=== PATIENT | male | born 1985 | race Caucasian/White ===

== ENCOUNTER 2016-10-09 08:24 | Day surgery (SDC) | payer OTHER ==
[~2016-10-09 08:24] MED LIST: Z.0.NO CURRENT MEDS
[2016-10-09] MEDS ORDERED: INSULIN HUMAN REGULAR 1,000 UNITS/10 ML VIAL SQ PRN (08:45)
[2016-10-09] MEDS ORDERED: METOPROLOL TARTRATE 25 MG TAB PO PRN (08:45)
[2016-10-09] MEDS ORDERED: LACTATED RINGER'S 1000 ML IV SCH (08:45)
[2016-10-09] MEDS ORDERED: MISCELLANEOUS NURSING INFORMATION XX PRN (11:15)
--- NOTE | 2016-10-09 15:20 | EKG ---
Date Performed: 10/09/2016 Time Performed: 08:45:08 PTAGE: 31 years EKG: Sinus bradycardia Possible anterior infarct - age undetermined Abnormal ECG NO PREVIOUS TRACING DOCTOR: Jose Mitchell Interpretating Date/Time 10/09/2016 15:18:29
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
--- NOTE | 2016-10-10 09:04 | ETE ---
Study Study Date:10/09/2016 STUDY CONCLUSIONS SUMMARY - Left ventricle: The cavity size was normal. Wall thickness was normal. Systolic function was normal. The estimated ejection fraction was in the range of 60% to 65%. Wall motion was normal; there were no regional wall motion abnormalities. - Aortic valve: Functionally bicuspid with fusion of left and right coronary cusps. Thickening. Valve mobility was mildly restricted. No evidence of vegetation. Transvalvular velocity was minimally increased. There was very mild stenosis. Mild regurgitation. - Aortic root: The aortic root was dilated. - Ascending aorta: The ascending aorta was severely dilated. - Mitral valve: No evidence of vegetation. Mild regurgitation. - Left atrium: No evidence of thrombus in the atrial cavity or appendage. - Tricuspid valve: No evidence of vegetation. Mild regurgitation. - Pulmonic valve: No evidence of vegetation. If LV function is below 40, please consider prescribing an ACEI or ARB or document rationale for non-use. PROCEDURE DATA Consent: The risks, benefits, and alternatives to the procedure were explained to the patient and informed consent was obtained. Procedure: Initial setup. The patient was brought to the laboratory in the fasting state. Intravenous access was obtained. Surface ECG leads and pulse oximetric signals were monitored. Sedation. Deep sedation was administered by anesthesiology. Transesophageal echocardiography. Topical anesthesia was obtained using viscous lidocaine. A transesophageal probe was inserted by the attending smooth plater. Image quality was good. Study completion: All IVs inserted during the procedure were removed. The patient tolerated the procedure well. There were no complications. Transesophageal echocardiography. 2D, complete spectral Doppler, and color Doppler. CARDIAC ANATOMY LEFT VENTRICLE: The cavity size was normal. Wall thickness was normal. Systolic function was normal. The estimated ejection fraction was in the range of 60% to 65%. Wall motion was normal; there were no regional wall motion abnormalities. AORTIC VALVE: Functionally bicuspid with fusion of left and right coronary cusps. Thickening. Cusp separation was normal. Valve mobility was mildly restricted. No evidence of vegetation. Doppler: Transvalvular velocity was minimally increased. There was very mild stenosis. Mild regurgitation. Aorta: - There was no atheroma. There was no evidence for dissection. Aortic root: The aortic root was dilated. Ascending aorta: The ascending aorta was severely dilated. Aortic arch: The aortic arch was normal in size. Descending aorta: The descending aorta was normal in size. MITRAL VALVE: Structurally normal valve. Leaflet separation was normal. No evidence of vegetation. Doppler: Mild regurgitation. LEFT ATRIUM: The atrium was normal in size. No evidence of thrombus in the atrial cavity or appendage. The appendage was morphologically a left appendage, multilobulated, and of normal size. Emptying velocity was normal. RIGHT VENTRICLE: The cavity size was normal. Wall thickness was normal. Systolic function was normal. PULMONIC VALVE: Structurally normal valve. No evidence of vegetation. TRICUSPID VALVE: Structurally normal valve. Leaflet separation was normal. No evidence of vegetation. Doppler: Mild regurgitation. PULMONARY ARTERY: The main pulmonary artery was normal-sized. RIGHT ATRIUM: The atrium was normal in size. PERICARDIUM: There was no pericardial effusion. DOPPLER MEASUREMENTS ADULT NORMAL Main pulmonary artery Pressure, S 15 mm Hg =30 Aortic valve Peak velocity, S 92.8 cm/s Tricuspid valve Regurgitant peak velocity 115 cm/s Peak RV-RA gradient, S 5 mm Hg Maximal regurgitant velocity 115 cm/s Systemic veins Estimated CVP 10 mm Hg Right ventricle RV pressure, S 15 mm Hg <30 LEGEND: Mean values are shown as u=mean value. Asterisk (*) krishnamurthy values outside specified normal range. Prepared and signed by Arvin Murphy [id number]
== END 2016-10-09 12:00 | disposition home or self-care (01) ==
LOC: HDOC 08:24 → HDIC 08:26 → HDOC 12:00
PROVIDERS: ATTEND Internal Medicine
DX: I71.2 Thoracic aortic aneurysm, without rupture (principal); R00.1 Bradycardia, unspecified; R94.31 Abnormal electrocardiogram [ECG] [EKG]; Z87.891 Personal history of nicotine dependence; I07.1 Rheumatic tricuspid insufficiency
CPT/HCPCS: 93005; 93312; 93320; 93325

== ENCOUNTER 2016-12-20 06:23 | Day surgery (SDC) | payer OTHER ==
[~2016-12-20] VITALS: Ht 182.9 cm; Wt 83.3 kg
[2016-12-20] MEDS ORDERED: NS 1000P @30 MLS/HR (KVO) IV SCH (07:00)
[2016-12-20 07:20] VITALS: BP 138/81; PULSE 44; RESP 18; TEMP 97.6; O2SAT 100
[2016-12-20] MEDS ORDERED: FLUT50SP EACH NARE (07:26)
[2016-12-20] MEDS ORDERED: OMEP20TA PO (07:26)
[2016-12-20] MEDS ORDERED: VERAPAMIL HCL 5 MG/2 ML VIAL ONE (08:20)
[2016-12-20] MEDS ORDERED: MIDAZOLAM HCL 2 MG/2 ML VIAL ONE ×2 (08:20→08:42)
[2016-12-20] MEDS ORDERED: HEPARIN-NS/PF INJ 500 ML ONE (08:20)
[2016-12-20] MEDS ORDERED: NITROGLYCERIN INJ 5 ML ONE (08:21)
[2016-12-20] MEDS ORDERED: HEPARIN SODIUM - IV 10,000 UNITS/10 ML VIAL ONE (08:21)
[2016-12-20] MEDS ORDERED: oxyCODONE/ACETAMINOPHEN 5 MG/325 MG TAB PO PRN ×2 (09:00)
[2016-12-20] MEDS ORDERED: ONDANSETRON HCL 4 MG/2 ML VIAL IVP PRN (09:00)
[2016-12-20] MEDS ORDERED: MISC INFORMATION XX ONE (09:00)
[2016-12-20] MEDS ORDERED: BACITRACIN OINT 0.9 GM PKT TOP ONE (09:00)
--- NOTE | 2016-12-20 09:03 | CATHPROC ---
Stretchr HIS Report Study Information Study Number Scheduled Start Study Start [id number] 12/20/2016 Dec 20 2016 8:15AM Referring Institution Admit Source Facility Department 1 Other [facility] - [facility] Department Supervisor Physician and Clinical Staff Initial Arvin Pinedo Journeyman WiremanKiki Parisi,RN Journeyman WiremanSharif Shah,[place] Recorder Karl Knox,RT(R) Scrub Kenroy Hernandez,RT(R) TECH2 Procedures Performed Procedure Location (Site) Vessel Name Coronary Angiograms LCA Left Coronary Coronary Angiograms RCA Right Coronary L Heart Cath Equipment Time Hoe Worker Description Size Mfg Part Number Used/Scraped TRANSDUCER, TRUWAVE 08:23 BROOKE BLACKWELL * [id number] Used W/STOCKCOCK [id number] *[id number] 08:23 [employer] PACK, CCL CUSTOM * Used *[id number] 08:23 [employer] SUPPORT, ARTERIAL ADULT [id number] Used 08:23 [employer] PACER PEN, SKIN DUAL W/ RULER * [id number] Used BAND, RADIAL COMPRESSION TR [id number] 08:54 EndoSphere 24CM Used SHORT 24 *[id number] SHEATH, FR6 RADIAL PRELUDE 08:23 [employer] FR 6 [id number] Used EASE 11CM [id number] 08:23 [employer] WIRE, EXCHANGE 260CM [id number] 260CM Used *[id number] 08:23 [employer] OMNIPAQUE, 350 MG, 100ML 100ML [id number] Used [id number] 08:23 [employer] BLANKET,WARM AIR CCL * Used *[id number] History: Allergies Allergy Reaction No Known Allergies History: Risk Factors Family History of Hypertension Dyslipidemia Previous OR Previous Heart Failure Premature CAD No No No No No Prior Valve Prior PCI Prior CABG Surgery No No No Cerebrovascular Peripheral Artery Chronic Lung On Dialysis Diabetes Disease Disease Disease No No No No No History: Symptoms/Diagnosis Selection Items Chest pain History: Stress Tests Stress or Imaging Studies Performed No History: Other Current Smoker Method Quit Packs a Day Years Used Pack Years No Cigarettes 4 Years Ago 1 3 3 Labs Hgb (g/dl) Hct (%) RBC (MIL/MM3) WBC (l/cumm) Platelets (thousands) 12.00-18.00 37.00-55.00 4.80-6.20 4.80-10.80 140.00-450.00 14.5 41.5 4.4 6.9 205 Glucose (mg/dl) BUN (mg/dl) Creatinine (mg/dl) BUN:Creatinine (1:x) 60.00-110.00 8.00-20.00 0.10-9.00 10.00-20.00 67 15 0.9 16.7 Na (meq/l) K (meq/l) Cl (meq/l) CO2 (mmol/L) Ca (mg/dl) 138.00-146.00 3.80-5.10 101.00-111.00 23.00-30.00 9.00-10.50 142 4 100 21 9.4 PT (sec) INR (PTT:PT) 9.40-11.40 0.50-2.00 10.6 1 CPK-MB (ng/ML) 0.00-7.00 Not Drawn Medication Medication Total Dose (Bolus/Oral) Medication Total Dosage/Unit FENTANYL 100 mcg HEPARIN 2000 units NTG (IC) 400 mcg OXYGEN 2 l/min VERSED 4 mg Medications (Bolus/Oral) Medication Time Given Dosage/Unit Administered By Reason VERSED 12/20/2016 8:37:46 AM 2 mg Diana Blackwella 2 mg VERSED given in lab by Kiki Blackwell RN in Left Antecubital via Peripheral IV. FENTANYL 12/20/2016 8:38:45 AM 50 mcg Kiki Blackwell 50 mcg FENTANYL given in lab by Kiki Blackwell RN in Left Antecubital via Peripheral IV. VERSED 12/20/2016 8:43:46 AM 2 mg Diana Blackwella 2 mg VERSED given in lab by Kiki Blackwell RN in Left Antecubital via Peripheral IV. FENTANYL 12/20/2016 8:44:29 AM 50 mcg Kiki Blackwell 50 mcg FENTANYL given in lab by Kiki Blackwell RN in Left Antecubital via Peripheral IV. NTG (IC) 12/20/2016 8:45:44 AM 200 mcg Arvin Murphy 200 mcg NTG (IC) given in lab by Arvin Murphy in Right Radial via Intra-coronary. HEPARIN 12/20/2016 8:46:06 AM 2000 units Kiki Blackwell 2000 units HEPARIN given in lab by Kiki Blackwell RN in Left Antecubital via Peripheral IV. OXYGEN 12/20/2016 8:47:04 AM 2 l/min Kiki Blackwell 2 l/min OXYGEN given in lab by Kiki Blackwell, [place] via Nasal. NTG (IC) 12/20/2016 8:49:05 AM 200 mcg Kiki Blackwell 200 mcg NTG (IC) given in lab by Kiki Blackwell, [place] via Intra-arterial. Medication (Drip) Medication Time Given Dosage/Unit Concentration/Unit Diluent (ml) Solution IV Solutions 12/20/2016 8:20:28 AM 0 mL (IV) 500 NaCl .9 IV Solutions given in lab by Sharif Blake, RN in Left Antecubital via Peripheral IV. Pump/Drip Flow = 20 ml/hr using NaCl .9. Initial Case Assessment Cardiovascular HR Rhythm NIBP Chest Pain 62 Sinus 149/86 0 Edema Present Skin color Skin None Normal Warm Dry Circulatory - Right Pulses Dorsalis Pedis Femoral Radial 2 2 2 Scale (0,1,2,3,4,d) Circulatory - Left Pulses Dorsalis Pedis Femoral Radial 2 2 Scale (0,1,2,3,4,d) Neurological State Oriented to time-place- Alert Moves all extremities person Respiration - General Respiration Rate SpO2 (%) O2 (lpm) (B/min) 8 100 0 Final Case Assessment Cardiovascular HR Rhythm NIBP Chest Pain 59 Sinus 109/54 0 Edema Present Skin color Skin None Normal Warm Dry Circulatory - Right Pulses Dorsalis Pedis Femoral Radial 2 2 2 Scale (0,1,2,3,4,d) Circulatory - Left Pulses Dorsalis Pedis Femoral Radial 2 2 Scale (0,1,2,3,4,d) Neurological State Oriented to time-place- Alert Moves all extremities person Respiration - General Respiration Rate SpO2 (%) O2 (lpm) (B/min) 16 97 2 Chronological Log Time Study Chronological Log 8:13:28 Patient arrived via Bed. 8:15:34 Patient Name, D.O.B, / Armband Verified By R.N. 8:15:34 Consent signed by the physician and the patient and verified by the [facility] Department Supervisor staff. 8:15:35 Pre-op and post- op instructions given; patient acknowledges understanding of instructions. Verbal Stimulation=~VERBAL~ Physical Stimulation=~PHYSICAL~ Airway=~AIRWAY~ Respiration=~RESPIR ATION~ 8:15:36 TOTAL=~TOTAL~. (0=absent, 1=limited, 2=present) 8:19:41 Presedation assessment performed by [facility] Department Supervisor RN. 8:19:43 Allens test performed on the right radial and ulnar artery. Vitals capture started with the following parameters, Patient=Adult, Interval=5 min, Initial Pr rbzcvm=436 mmHg, 8:19:47 Deflation Rate=5 mmHg 8:19:50 Patient has been NPO for More than 6Hrs. 8:19:51 Skin Breakdown- none per patient. 8:20:07 Patient Warmer Placed on the Table. 8:20:09 Tk Prominences Protected 8:20:12 A # 20 IV was noted in the Antecubital (left). Grade = 0 IV Solutions given in lab by Sharif Blake, RN in Left Antecubital via Peripheral IV. Pump/Drip Flow = 20 ml/hr using 8:20:28 NaCl .9. 8:20:32 HR=60 bpm, DKZF=464/86 mmhg, StW3=872.0 %, Resp=13 B/min, Pain=0, Sunil=10, Morales=2 8:21:12 History and physical on the chart or being dictated. Assessment: Initial Case, HR=62 BPM, Rhythm=Sinus, WXQY=720/86 mmhg, Chest Pain=0, Edema=None, Color=Normal, Skin = Warm, Dry Right Pulses: Julio César Ped=2, Femoral=2, Radial=2 8:21:14 Left Pulses: Julio César Ped=2, Femoral=2 Neurological: State=Alert, Ox3, NUNEZ Respiration: Resp=8 B/min, MsK5=144 %, O2=0 lpm 8:25:56 HR=47 bpm, WLEY=181/95 mmhg, Resp=23 B/min, Pain=0, Sunil=10, Morales=2 8:28:12 Right Radial and groin(s) prepped with 2% chlorhexidine, and with a 3 min. waiting time. 8:30:59 HR=60 bpm, RVHA=182/80 mmhg, RuU1=765.0 %, Resp=13 B/min, Pain=0, Sunil=10, Morales=2 8:32:10 paged 8:35:27 HR=52 bpm, PZKJ=301/72 mmhg, SpO2=98.0 %, Resp=20 B/min, Pain=0, Sunil=10, Morales=2 8:35:31 Pressure channel 1 zeroed. 8:37:08 MD arrived. 8:37:46 2 mg VERSED given in lab by Kiki Blackwell RN in Left Antecubital via Peripheral IV. 8:38:45 50 mcg FENTANYL given in lab by Kiki Blackwell RN in Left Antecubital via Peripheral IV. 8:40:30 HR=49 bpm, KPUR=949/62 mmhg, SpO2=95.0 %, Resp=14 B/min, Pain=0, Sunil=10, Morales=2 8:41:24 Reference ECG taken 8:43:46 2 mg VERSED given in lab by Kiki Blackwell RN in Left Antecubital via Peripheral IV. Time Out. Correct patient, correct procedure,correct physician, power injector loaded with contr ast with surgical team 8:43:50 present. Time Out Concurred by , individual staff in procedure 8:44:15 Case Start 8:44:27 Access site was right Radial Artery. 8:44:29 50 mcg FENTANYL given in lab by Kiki Blackwell RN in Left Antecubital via Peripheral IV. A SHEATH, FR6 RADIAL PRELUDE EASE 11CM FR 6 was advanced into the Radial (right) using the Cora st 8:44:54 technique. 8:45:24 In the Radial (right) the SHEATH, FR6 RADIAL PRELUDE EASE 11CM FR [address] by Arvin Murphy. 8:45:27 HR=50 bpm, ZNZR=995/58 mmhg, SpO2=90.0 %, Resp=24 B/min, Pain=0, Sunil=10, Morales=2 8:45:44 200 mcg NTG (IC) given in lab by Arvin Murphy in Right Radial via Intra-coronary. 8:46:06 2000 units HEPARIN given in lab by Kiki Blackwell RN in Left Antecubital via Peripheral IV. A JR 5.0 INFINITI CATHETER FR 6 was advanced over a wire. OMNIPAQUE, 350 MG, 100ML 100ML was use d for 8:46:18 injections. 8:47:04 2 l/min OXYGEN given in lab by Kiki Blackwell RN via Nasal. 8:47:22 The RCA was injected and visualized at various angles. OMNIPAQUE, 350 MG, 100ML 100ML used. 8:48:02 Catheter was removed 8:49:05 200 mcg NTG (IC) given in lab by Kiki Blackwell RN via Intra-arterial. Recorded Pressure: Ao, HR=47, Condition=Condition 1 8:50:23 (Aorta) Ao 98/61/77 8:50:28 HR=48 bpm, BVEO=612/53 mmhg, SpO2=99.0 %, Resp=11 B/min, Pain=0, Sunil=10, Morales=2 8:50:31 The LCA was injected and visualized at various angles. OMNIPAQUE, 350 MG, 100ML 100ML used. 8:51:27 Catheter was removed 8:51:42 Case End 8:52:06 No case complications noted. 8:52:09 Cine recording checked. 8:53:02 Bedside Report will be given. 8:53:08 A Left Heart Cath was performed. Radial Compression Device Used. 15 mLs of air placed in BAND, RADIAL COMPRESSION TR SHORT 24 2 4CM. Affected 8:53:15 hand 97 % O2 saturation. Assessment: Final Case, HR=59 BPM, Rhythm=Sinus, ZHGS=103/54 mmhg, Chest Pain=0, Edema=None, Color=Normal, Skin = Warm, Dry Right Pulses: Julio César Ped=2, Femoral=2, Radial=2 8:54:51 Left Pulses: Julio César Ped=2, Femoral=2 Neurological: State=Alert, Ox3, NUNEZ Respiration: Resp=16 B/min, SpO2=97 %, O2=2 lpm 8:55:29 HR=56 bpm, OHQA=095/54 mmhg, SpO2=96.0 %, Resp=19 B/min, Pain=0, Sunil=10, Morales=2 8:59:19 Vitals capture stopped. 8:59:54 [facility] Study - Contrast Media Used In Study Contrast Total Opened (mL) Total Used (mL) Total Wasted (mL) Omnipaque 150 40 110 End Study - Maximum Contrast Load Max Contrast Load (mL) 462.9 End Study - Radiation Exposure Fluoro Time (minutes) 1.8 End Study - Patient Disposition Complications Transferred To Interventional Outcome No Outpatient Bed No attempt made
[2016-12-20] MEDS ORDERED: IOHEXOL 350 MG/ML 100 ML BTL (for Cath Lab) OTHER ONE (09:33)
--- NOTE | 2016-12-20 10:26 | MA ---
cc: PAULETTE CLARK MD DATE 12/20/2016 PROCEDURE PERFORMED 1. Fluoroscopy with interpretation. 2. Coronary angiography. METHOD The risks, benefits and alternatives discussed with the patient. The patient understood and consented to the procedure. PROCEDURE The patient brought into the catheterization lab, placed on the catheterization table. The right wrist was prepped and draped in a sterile fashion. The right wrist was anesthetized with 2% lidocaine. The right radial artery was cannulated and a 6-Urdu, 7 cm sheath was placed without difficulty. 200 mcg of intra-arterial nitroglycerin and 2000 units of intravenous heparin was administered. CORONARY ANGIOGRAPHY 1. Left main coronary is angiographically normal. 2. left anterior descending coronary is A large caliber size vessel extending down to a large diagonal branch. The apical LAD itself is smaller caliber size and all of it is angiographically normal. 3. Left circumflex gives rise to an obtuse marginal branch angiographically normal. 4. The right coronary is a dominant vessel giving rise to a posterior descending branch angiographically normal. CONCLUSION Angiographically normal coronary arteries. PLAN The patient will be scheduled for surgery with Dr. Morton. MD PHILLY Brizuela/BRANDI /9:54 AM /10:12 AM
--- NOTE | 2016-12-20 13:01 | RADRPT ---
EXAM DATE/TIME: 12/20/2016 12:24 [facility] COMPARISON: No previous studies available for comparison. INDICATIONS : Pre Op cardiac surgery. MEDICAL HISTORY : Chest pain. Aortic stenosis. SURGICAL HISTORY : Cardiac cath, right wrist. ENCOUNTER: Initial ACUITY: 1 day PAIN SCORE: 1/10 LOCATION: Bilateral legs. TECHNIQUE: Venous ultrasound of the left and right leg was performed from the inguinal ligament to the proximal calf. Real-time, color Doppler and spectral tracing, compression and augmentation techniques were us ed. FINDINGS: RIGHT LEG: There is normal compressibility of the deep venous system from the inguinal region to the proximal ca lf. No echogenic clot is seen in the lumen of the common femoral, femoral, popliteal, and posterior tibial veins. There is a normal response of the venous system to proximal and distal augmentation an d respiration. LEFT LEG: There is normal compressibility of the deep venous system from the inguinal region to the proximal ca lf. No echogenic clot is seen in the lumen of the common femoral, femoral, popliteal, and posterior tibial veins. There is a normal response of the venous system to proximal and distal augmentation an d respiration. CONCLUSION: 1. No evidence of deep venous thrombosis. Zaid Dominguez MD on December 20, 2016 at 13:00 Board Certified Radiologist. This report was verified electronically.
--- NOTE | 2016-12-20 13:03 | RADRPT ---
EXAM DATE/TIME: 12/20/2016 12:31 [facility] COMPARISON: No previous studies available for comparison. INDICATIONS : PreOp cardiac surgery. MEDICAL HISTORY : Chest pain. Aortic stenosis. SURGICAL HISTORY : Cardiac cath, right wrist. ENCOUNTER: Initial ACUITY: 1 day PAIN SCORE: 1/10 LOCATION: Bilateral legs. GREATER SAPHENOUS VEIN THIGH: PROXIMAL: Right 3 mm Left 4 mm MID: Right 4 mm Left 4 mm DISTAL: Right 4 mm Left 4 mm CALF: PROXIMAL: Right 4 mm Left 3 mm MID: Right 2 mm Left 3 mm DISTAL: Right 5 mm Left 3 mm FINDINGS: The venous system of the lower extremities are patent by color Doppler imaging. Measurements of the leg veins (in mm) are listed above. CONCLUSION: 1. Venous mapping as above Zaid Dominguez MD on December 20, 2016 at 13:02 Board Certified Radiologist. This report was verified electronically.
[2016-12-20 13:39] LABS: HEMOGLOBIN A1a 0.8 %; HEMOGLOBIN A1b 0.7 %; HEMOGLOBIN Ao 85.5 %; HEMOGLOBIN F 1.3 %; HEMOGLOBIN P3 3.4 %
--- NOTE | 2016-12-20 13:55 | RADRPT ---
EXAM DATE/TIME: 12/20/2016 13:30 [facility] COMPARISON: No previous studies available for comparison. INDICATIONS : Evaluate for pneumothorax, pneumonia or communicable disease. Preop chest for cardiac surgery and rep air of thoracic aortic anuerysm on 01/08/17 MEDICAL HISTORY : thoracic aortic anuerysm SURGICAL HISTORY : None. ENCOUNTER: Initial ACUITY: 1 day PAIN SCORE: 0/10 LOCATION: Bilateral chest FINDINGS: PA and lateral views of the chest demonstrate the lungs to be symmetrically aerated without evidence of mass, infiltrate or effusion. The cardiomediastinal contours are unremarkable. Osseous structure s are intact. CONCLUSION: Normal examination. Arvin Blackwell MD on December 20, 2016 at 13:54 Board Certified Radiologist. This report was verified electronically.
[2016-12-20 14:21] LABS: BLOOD, URINE NEG (NEG); GLUCOSE,URINE NEG (NEG); KETONE, URINE NEG (NEG); NITRITE,URINE NEG (NEG); PH, URINE 6.5 (5.0-8.5); URINE COLOR YELLOW (YELLW/STRAW)
[2016-12-20 14:23] LABS: COMMENT (UR) CULT NOT INDICATED; CULTURE IF INDICATED CULT NOT INDICATED
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
--- NOTE | 2016-12-25 10:30 | RSPPFT ---
DATE OF PROCEDURE: 12/20/16 COMMENTS: Spirometry demonstrates an FEV1 of 3.7 at 78% of predicted, FVC of 5.5 at 95%, FEF 25-75 is 50%. Post-bronchodilator study was not conducted. Flow volume loop are unavailable. IMPRESSION: 1. Mild obstructive airways disease.
== END 2016-12-20 14:10 | disposition home or self-care (01) ==
LOC: HCAT 06:23 → HDIC 06:24 → HCAT 14:10
PROVIDERS: ATTEND Internal Medicine
DX: I71.2 Thoracic aortic aneurysm, without rupture (principal); Q23.1 Congenital insufficiency of aortic valve; K21.9 Gastro-esophageal reflux disease without esophagitis; Z01.818 Encounter for other preprocedural examination; J98.8 Other specified respiratory disorders
CPT/HCPCS: 71020; 81001; 83036; 86850; 86900; 86901; 87641; 93454; 93970; 93998; 94010; C1769; C1893; J1644; J2250; J3010; Q9967

== ENCOUNTER 2017-01-02 14:32 | Inpatient (IN) | payer OTHER ==
[~2017-01-02] VITALS: Ht 182.9 cm; Wt 82.0 kg
[2017-01-08] VITALS (13 sets, daily range): BP systolic 93–128; BP diastolic 54–80; PULSE 56–74; RESP 10–25; TEMP 96.7–98.1; O2SAT 95–99
[2017-01-08] MEDS ORDERED: HEPARIN SODIUM - SQ 10,000 UNITS/ML VIAL SQ ONE (05:00)
[2017-01-08] MEDS ORDERED: PROTAMINE SULFATE 250 MG/25 ML VIAL IV ONE (05:00)
[2017-01-08] MEDS ORDERED: PHENYLEPHRINE HCL 10 MG/ML VIAL IV ONE (05:00)
[2017-01-08] MEDS ORDERED: ceFAZolin INJ 1,000 MG VIAL IV ONE ×2 (05:00→12:06)
[2017-01-08] MEDS ORDERED: ARTIFICIAL TEARS OPTH OINT 3.5 APPLIC/3.5 GM TUBO ONE (05:00)
[2017-01-08] MEDS ORDERED: CALCIUM CHLORIDE 10% SOLN 1 GRAM/10 ML SYR IV ONE (05:00)
[2017-01-08] MEDS ORDERED: MAGNESIUM SULFATE 1000 MG/2 ML VIAL (PED) IV ONE (05:00)
[2017-01-08] MEDS ORDERED: GLYCOPYRROLATE 0.2 MG/ML VIAL IV ONE (05:00)
[2017-01-08] MEDS ORDERED: DEXMEDETOMIDINE INJ 50 ML IV ONE (05:00)
[2017-01-08] MEDS ORDERED: AMINOCAPROIC ACID INJ 250 MG/ML 20 ML VIAL IV ONE (05:00)
[2017-01-08] MEDS ORDERED: VECURONIUM BROMIDE 10 MG VIAL IV ONE ×2 (05:00→08:08)
[2017-01-08] MEDS ORDERED: SODIUM CHLORIDE 0.9% FLUSH 10 ML FLUSH IV FLUSH PRN ×2 (06:00→12:45)
[2017-01-08] MEDS ORDERED: FLUT1SPR5 EACH NARE (06:09)
[2017-01-08] MEDS ORDERED: METOPROLOL TARTRATE 25 MG TAB PO SCH (06:15)
[2017-01-08] MEDS ORDERED: INSULIN REGULAR 100 UNITS in NS 100 ML IV SCH (06:15)
[2017-01-08] MEDS ORDERED: ceFAZolin 2 GM PREMIX 50 ML IV SCH (06:15)
[2017-01-08] MEDS ORDERED: LACTATED RINGER'S 1000 ML IV PRN (06:15)
[2017-01-08] MEDS ORDERED: CHLORHEXIDINE GLUCONATE 4% SOLN 120 ML BTL TOPICAL SCH (06:15)
[2017-01-08] MEDS ORDERED: HEPARIN SODIUM - SQ 10,000 UNITS/ML VIAL ONE (06:35)
[2017-01-08] MEDS ORDERED: ceFAZolin 2 GM PREMIX 50 ML ONE (06:35)
[2017-01-08] MEDS ORDERED: VANCOMYCIN HCL 1000 MG VIAL ONE (06:35)
[2017-01-08] MEDS ORDERED: POTASSIUM CHLORIDE 20 MEQ/10 ML VIAL ONE (06:50)
[2017-01-08] MEDS ORDERED: CUSTODIOL HTK IRR SOLN 1,000 ML ONE (06:50)
[2017-01-08] MEDS ORDERED: SODIUM BICARBONATE 8.4% INJ 50 ML ONE (06:51)
[2017-01-08] MEDS ORDERED: MANNITOL INJ 50 ML ONE (06:54)
[2017-01-08] MEDS ORDERED: ALBUMIN HUMAN 25% 12.5 GM/50 ML BAGP IV ONE (06:55)
[2017-01-08] MEDS ORDERED: HEPARIN SODIUM - IV 10,000 UNITS/10 ML VIAL ONE (06:55)
[2017-01-08] MEDS ORDERED: NEOSTIGMINE METHYLSULFATE 10 MG/10 ML VIAL IV PUSH ONE (08:07)
[2017-01-08] MEDS ORDERED: LACTATED RINGER'S 1000 ML INJ 2,000 ML IV ONE (08:08)
[2017-01-08] MEDS ORDERED: SODIUM CHLORIDE 0.9% INJ 100 ML IV ONE (08:09)
[2017-01-08] MEDS ORDERED: SODIUM CHLOR 0.9% 250 ML INJ 500 ML IV ONE (08:09)
[2017-01-08] MEDS ORDERED: SODIUM CHLORID 0.9% 500 ML INJ 500 ML IV ONE (08:09)
[2017-01-08] MEDS ORDERED: NORMOSOL R INJ 2,000 ML IV ONE (08:10)
[2017-01-08] MEDS ORDERED: NITROGLYCERIN-DEXTROSE INJ 250 ML IV SCH (12:45)
[2017-01-08] MEDS ORDERED: POTASSIUM CHLORIDE 20 MEQ CONTROLLED RELEASE TAB PO PRN ×2 (12:45)
[2017-01-08] MEDS ORDERED: POTASSIUM CHLOR 20 MEQ PREMIX 100 ML IV PRN ×3 (12:45)
[2017-01-08] MEDS ORDERED: hydrALAZINE HCL 20 MG/ML VIAL IV PRN (12:45)
[2017-01-08] MEDS ORDERED: DEXTROSE 50% IN WATER 50 ML VIAL(D50) IV PUSH PRN (12:45)
[2017-01-08] MEDS ORDERED: CALCIUM CHLORIDE 10% 1 GRAM/10 ML VIAL IV PRN (12:45)
[2017-01-08] MEDS ORDERED: MEPERIDINE HCL 25 MG/ML VIAL IV PRN (12:45)
[2017-01-08] MEDS ORDERED: ACETAMINOPHEN 650 MG SUPP RECTAL PRN (12:45)
[2017-01-08] MEDS ORDERED: MAGNESIUM SULFATE INJ 2 GM in SODIUM CHLORIDE 0.9% INJ 100 ML IV PRN ×4 (12:45)
[2017-01-08] MEDS ORDERED: METOPROLOL TARTRATE 5 MG/5 ML VIAL IV PUSH PRN (12:45)
[2017-01-08] MEDS ORDERED: DEXMEDETOMIDINE INJ 200 MCG in SODIUM CHLORIDE 0.9% INJ 50 ML IV SCH (12:45)
[2017-01-08] MEDS ORDERED: LACTATED RINGER'S 1000 ML INJ 500 ML IV PRN (12:45)
[2017-01-08] MEDS ORDERED: RESP: ALBUTEROL 2.5 MG/IPRATROPIUM 0.5 MG NEB (PRN) NEB (12:45)
[2017-01-08] MEDS ORDERED: RESP: RACEPINEPHRINE 2.25% 0.5 ML NEB NEB PRN (12:45)
[2017-01-08] MEDS ORDERED: Post-op Orders (for Pharmacy) MISC OTHER ONE (12:45)
[2017-01-08] MEDS ORDERED: DOPamine INJ PREMIX 500 ML IV SCH (12:45)
[2017-01-08] MEDS ORDERED: ACETAMINOPHEN 325 MG TAB PO PRN (12:45)
[2017-01-08] MEDS ORDERED: CLEVIDIPINE INJ 50 ML IV SCH (12:45)
[2017-01-08] MEDS ORDERED: MORPHINE SULFATE 4 MG/ML INJ IV PRN (12:45)
[2017-01-08] MEDS ORDERED: ALBUMIN HUMAN 5% 12.5 GM/250 ML BOTTLE IV PRN (12:45)
[2017-01-08] MEDS ORDERED: DOBUTamine PREMIX DRIP 250 ML IV SCH (13:30)
[2017-01-08] MEDS ORDERED: fentaNYL CITRATE 1000 MCG/20 ML VIAL ONE (13:46)
[2017-01-08] MEDS ORDERED: MIDAZOLAM HCL 5 MG/5 ML VIAL ONE (13:46)
[2017-01-08] MEDS: CALCIUM CHLORIDE INJ 1 GM in SODIUM CHLORIDE 0.9% INJ 100 ML IV PRN ×2 (13:55→18:44)
--- NOTE | 2017-01-08 13:56 | RADRPT ---
EXAM DATE/TIME: 01/08/2017 13:21 [facility] COMPARISON: CHEST PA & LAT, December 20, 2016, 13:30. INDICATIONS : S/p cabg. MEDICAL HISTORY : aortic stenosis, thoracic aortic aneurysm SURGICAL HISTORY : None. ENCOUNTER: Initial ACUITY: 1 day PAIN SCORE: Non-responsive. LOCATION: Bilateral chest FINDINGS: The heart is normal in size. The patient is post median sternotomy. The lungs demonstrate minimal bas ilar atelectasis on the left. There is no pneumothorax. The ET tube, mediastinal drains, right jugular central line and nasogastric tube are all in good posi tion. CONCLUSION: 1. Stable postoperative chest. Matt Martinez MD on January 08, 2017 at 13:53 Board Certified Radiologist. This report was verified electronically.
[2017-01-08] MEDS ORDERED: INSULIN REGULAR (IV INFUSION) 100 UNITS in SODIUM CHLORIDE 0.9% INJ 99 ML IV SCH (14:00)
[2017-01-08] MEDS ORDERED: PHENYLEPHRINE INJ 40 MG in DEXTROSE 5% IN WATE 500 ML INJ 496 ML IV SCH ×2 (14:00)
[2017-01-08] MEDS ORDERED: EPINEPHrine (1:1000) INJ 4 MG in DEXTROSE 5% IN WATER INJ 246 ML IV SCH ×2 (14:00)
[2017-01-08] MEDS: ONDANSETRON HCL 4 MG/2 ML VIAL IV PUSH PRN ×2 (14:23→20:12)
[2017-01-08] MEDS: ACETAMINOPHEN 1000 MG/100 ML VIAL IV SCH ×2 (14:25→20:12)
--- NOTE | 2017-01-08 14:35 | PD.OP ---
cc: Stormy Morton MD; Arvin Murphy MD Operative Report Date of Surgery: Jan 08, 2017 Preoperative Diagnosis: Postoperative Diagnosis: Procedure: 1. Aortic valve replacement with a 25 mm Medtronic Mosaic Cinch II Tissue valve 2. Ascending Aortic Aneurysm Replacement with a 34 mm Hemashield Graft . Surgeon: Stormy Morton Supervisor [employer](s): Syl Womack Operation and Findings: PREOPERATIVE DIAGNOSES 1. Ascending Aortic Aneurysm - 5.7 cm 2. Bicuspid Aortic Valve POSTOPERATIVE DIAGNOSES Same SURGICAL PROCEDURE 1. Aortic valve replacement with a 25 mm Medtronic Mosaic Cinch II Tissue valve 2. Ascending Aortic Aneurysm Replacement with a 34 mm Hemashield Graft [employer] Jennifer Womack CSFEvaristo ANESTHESIA General endotracheal. CAN INSPECTOR Elijah Leyva CRNA, Jennifer Samayoa MD PREPARATION ChloraPrep. NEEDLE, SPONGE AND INSTRUMENT COUNT Correct. DRAINS Two 32-Tristanian mediastinal tubes. COMPLICATIONS None. INDICATIONS The patient is an 31-year-old gentleman with incidental findings of a 5.7 cm ascending aortic aneurysm and bicuspid aortic valve, presenting for surgical correction of the above pathologies. DESCRIPTION OF PROCEDURE The patient was brought to the operating room and placed supine on the OR table. Following the induction of adequate general endotracheal anesthesia and placement of appropriate monitoring devices, the patient was prepped and draped in the standard sterile fashion. Median sternotomy was performed, the pericardium was divided in the midline and the cradle created. The patient was systemically heparinized and anticoagulation monitored by serial ACT measurements. Then 2 pursestring sutures of 2-0 Ethibond were placed on the aorta proximal to the takeoff of the innominate artery, another was placed in the right atrial appendage. At this point, aortic and 2-stage venous cannulae were introduced and attached to the arterial and venous components of the bypass circuit respectively. Antegrade cardioplegia cannula and a left ventricular vent, through the right superior pulmonary vein, were also placed. The patient was placed on cardiopulmonary bypass and core cooling initiated to a temperature of 32 degrees centigrade. The crossclamp was applied and 1.8 L of cardioplegia solution (Jail HTK) given in an antegrade fashion in addition to topical cooling with slushed saline. Upon achieving adequate diastolic arrest of the heart. the aorta was transected transversly at the site of the ascending aneurysm. The aorta was examined and it was noted that the aneurysmal dilatation began just distal to the coronary ostia and the aortic caliber normalized just proximal to the arch. Plans were made to proceed with AVR and supracoronary aneurysm resection and replacement of the ascending aorta. The aortic valve was then excised. 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 Horizontal mattress sutures of interrupted 2-0 Ethibond were placed on the aortic annulus with pledgets on the ventricular side. After adequate sizing, a 25 mm Mosaic Cinch II valve was brought in the surgical field and the sutures passed through the skirt and the valve was situated. This appeared to be a good fit. Next the aneurysmal aorta was excised upto a relatively normal diameter just proximal to the arch. After adequate sizing, a 34 mm Hemashield graft was sewn to the distal aorta using a running 4-0 Prolene. The anastomosis was reinforced with interrupted horizontal mattress sutures of pledgeted 4-0 Prolene. Proximally, the aorta was excised to just above the coronary ostia and the graft sewn similarly to the umkumiut aorta with a running 4-0 Prolene with subsequent reinforcement using interrupted pledgeted 4-0 Prolene mattress sutures. Bioglue was applied to both suture lines. Root vent was placed into the graft. Gradual rewarming was initiated. The cross clamp was removed and upon achieving normothermic cardiac activity, transesophageal echocardiography revealed a well-situated aortic prosthesis with no evidence of perivalvular leak and no aortic stenosis or aortic regurgitation. Protamine was administered. Decannulation was performed and all sites were inspected for hemostasis. At this point the closure was undertaken. The pericardium was reapproximated in the midline. 2 chest tubes placed, and the sternum was reapproximated using stainless steel sternal wires. The musculo- fascial layer was then closed in 3 layers. The patient tolerated the procedure well and was transferred to open heart recovery in critical but stable condition. Stormy Morton MD Jan 08, 2017 14:35
[2017-01-08] MEDS: RESP: ALBUTEROL 2.5 MG/IPRATROPIUM 0.5 MG NEB (SCH) NEB ×2 (16:18→21:36)
[2017-01-08] MEDS: ceFAZolin 2 GM PREMIX 50 ML IV SCH (16:28)
[2017-01-08] MEDS: KETOROLAC TROMETHAMINE 30 MG/ML (IVP) VIAL IV PUSH PRN (16:28)
[2017-01-08] MEDS: SODIUM CHLORIDE 0.9% FLUSH 10 ML FLUSH IV FLUSH SCH (20:19)
[2017-01-08] MEDS: AMIODARONE 200 MG TAB PO SCH (21:00)
[2017-01-09] VITALS (11 sets, daily range): BP systolic 103–129; BP diastolic 54–82; PULSE 70–93; RESP 14–18; TEMP 98.3–98.9; O2SAT 94–96
[2017-01-09] MEDS: ceFAZolin 2 GM PREMIX 50 ML IV SCH ×3 (00:22→16:22)
[2017-01-09] MEDS: KETOROLAC TROMETHAMINE 30 MG/ML (IVP) VIAL IV PUSH PRN ×2 (00:53→09:44)
[2017-01-09] MEDS: ONDANSETRON HCL 4 MG/2 ML VIAL IV PUSH PRN ×3 (02:19→16:56)
[2017-01-09] MEDS: ACETAMINOPHEN 1000 MG/100 ML VIAL IV SCH ×2 (02:19→08:14)
[2017-01-09] MEDS: RESP: ALBUTEROL 2.5 MG/IPRATROPIUM 0.5 MG NEB (SCH) NEB ×2 (04:00→13:06)
--- NOTE | 2017-01-09 04:46 | RADRPT ---
EXAM DATE/TIME: 01/09/2017 03:53 [facility] COMPARISON: CHEST SINGLE AP, January 08, 2017, 13:21. INDICATIONS : Status post CABG. MEDICAL HISTORY : Aortic stenosis, Thoracic aortic aneurysm SURGICAL HISTORY : CABG. ENCOUNTER: Subsequent ACUITY: 2 days PAIN SCORE: 7/10 LOCATION: Bilateral chest FINDINGS: A single view of the chest demonstrates the lungs to be symmetrically aerated without evidence of mas s, infiltrate or effusion. The cardiomediastinal contours are unremarkable. Osseous structures are intact. Clips and wires suggest DVT. 2 medi[address] dra[address] are in place. Right IJ central line in good position CONCLUSION: Normal examination with clips and drains suspicious for median sternotomy. Arvin Blackwell MD on January 09, 2017 at 4:43 Board Certified Radiologist. This report was verified electronically.
[2017-01-09 05:05] LABS: HEMATOCRIT 35.8 % (39.0-51.0); MEAN CELL VOLUME 90.6 FL (80.0-100.0); MEAN CORPUSCULAR HEMOGLOBIN 31.5 PG (27.0-34.0); MEAN CORPUSCULAR HGB CONC 34.8 % (32.0-36.0); PLATELET COUNT 104 TH/MM3 (150-450); RED BLOOD COUNT 3.95 MIL/MM3 (4.50-5.90); RED CELL DISTRIBUTION WIDTH 12.8 % (11.6-17.2); REVIEW FLAG FINAL; WHITE BLOOD COUNT 13.9 TH/MM3 (4.0-11.0)
[2017-01-09 05:33] LABS: MAGNESIUM 1.6 MG/DL (1.5-2.5); POTASSIUM 4.5 MEQ/L (3.5-5.1)
[2017-01-09] MEDS: PANTOPRAZOLE SOD 40 MG DELAYED RELEASE TAB PO SCH (06:00)
[2017-01-09] MEDS ORDERED: SOD PHOSPHATE/SOD BIPHOSPHATE (ADULT) ENEMA 133ML RECTAL PRN (09:00)
[2017-01-09] MEDS ORDERED: GLUCAGON 1 MG/ML VIAL OTHER PRN (09:00)
[2017-01-09] MEDS ORDERED: DEXTROSE 50% IN WATER 50 ML VIAL(D50) IV PRN (09:00)
[2017-01-09] MEDS ORDERED: BISACODYL 10 MG SUPP RECTAL PRN (09:00)
[2017-01-09] MEDS ORDERED: CLOPIDOGREL 75 MG TAB PO SCH (09:00)
[2017-01-09] MEDS: MAGNESIUM HYDROXIDE SUSP 30 ML CUP PO SCH (09:43)
[2017-01-09] MEDS: ASPIRIN 81 MG CHEW TAB PO SCH (09:44)
[2017-01-09] MEDS: SODIUM CHLORIDE 0.9% FLUSH 10 ML FLUSH IV FLUSH SCH ×2 (09:44→21:13)
[2017-01-09] MEDS: AMIODARONE 200 MG TAB PO SCH ×2 (09:44→21:13)
[2017-01-09] MEDS: METOCLOPRAMIDE HCL 10 MG/2 ML VIAL IV SCH ×3 (09:49→21:13)
[2017-01-09] MEDS: DOCUSATE SODIUM 100 MG CAP PO SCH ×2 (09:49→21:13)
[2017-01-09] MEDS: MULTIVITAMINS/MINERALS THERAPEUTIC TAB PO SCH (09:49)
[2017-01-09] MEDS: oxyCODONE/ACETAMINOPHEN 5 MG/325 MG TAB PO PRN ×2 (11:36→18:27)
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
--- NOTE | 2017-01-09 12:56 | HHI.FF ---
Face to Face Verification Diagnosis: (1) Bicuspid aortic valve (2) Ascending aortic aneurysm (3) aortic valve recurg (4) S/P AVR (aortic valve replacement) Home Health Nursing Order: Signs/symptoms of disease process Wound care and dressing changes Nursing assessment with vital signs Instructions: PREVENA Single Use Negative Wound Therapy System Caregiver Instruction Sheet 1. A Prevena dressing system was applied to the chest incision during surgery , to promote wound healing. It works via a suction device (negative pressure wound therapy) to remove low to moderate levels of exudate (drainage) and infectious materials. We recommend that the device stay in place for up to seven days, from day of surgery. 2. Day of Surgery___/01/19 Day of Removal ____/ 3. The dressing should only be removed by a health skin care therapist. Please arrange removal of device to coincide with Home Health visit and or with Nursing staff at Rehab 4. If skin reddening or irritation of skin occurs, or excessive drainage, please notify the Cardiovascular Surgeons office at [phone]. 5. Light showering is permissible; however the pump should be disconnected and placed in safe location, where it will not get wet. The dressing should not be exposed to direct spray or submerged in water. No bath tub / shower only. Ensure the end of the tubing attached to the dressing is facing down so that water does not enter the top of the tube. 6. To remove Prevena dressing: press purple button to turn off device / remove the suction. Then disconnect the tubing from the pump. The fixation strips should be stretched away from the skin and the dressing lifted at one corner and peeled back until it has been fully removed. 7. After removal, it is ok to shower daily using liquid dial soap and clean wash cloth, rinse and pat dry, and leave incision open to air dry. For any concerns regarding Prevena dressing, and or wounds, please contact Paris Barron, patient navigator at [phone] or notify the Cardiovascular Surgeons office at [phone]. Incentive spirometry Q1 hr x 10, while awake, also use acapella device hourly whole awake Sternal Breast Bone Precautions: NO pushing or pulling, ( pt must use sternal pillow to support chest with all activities and with coughing ( takes up to 3 months breast bone to heal ) Daily incision care: ok to shower daily, no tub bath. Wash all incisions with liquid dial soap, clean wash cloth to each site, rinse and pat dry. Observe for any signs of infection, such as drainage which is dark yellow, foster, green or foul smelling. Immediately report to the surgeon any drainage from the chest incision, or legs, and for any abnormal drainage from the chest tube sites. Notify surgeon if any temp >101.5 degrees F. When specialty dressing removed/ or if you do not have one, continue to shower daily as above, then rinse and pat incision dry and paint with betadine daily x 5 days. Allow steri strips to fall off if you have any. Avoid lotions, creams, salves, oils, etc. for the first month Please see attached forms for additional instructions regarding post Open Heart specialty wound vacuum dressings. ONOFRE or Prevena , Dressing to be removed by Nursing staff on __// F/U appointment: as per CT instructions: PCP in 2 weeks, CV surgeon 2 weeks, Truck Assembler 3-4 weeks For any questions regarding incisions/ dressing / meds / post op care or above Symptoms, Saturday 8am-5pm Heart & Vascular Surgery Office ( Dr. Morton & Dr. Chavarria), After Hours / Nights (5pm -8am) Weekends and Holidays Please call [facility] ([facility]) Charge Nurse Heart and Vascular Surgery patients *Special attention to sternal dressing Mandatory frequency Assess and evaluation, 4 days in a row The next week 3X week 2 times a week for 4 weeks 1 time a week for 5 weeks Schedule Heart and Vascular patients for full 60 day certification period Initial visit Review Open Heart Surgery Discharge Instructions (Sternal precautions, Activity, Elastic hose, Incision care, Driving, Incentive spirometry, Smoking, [place], Work and other) Need Betadine to paint incision Medication reconciliation Importance of follow up care/ check on appointments Make calendar record temperature daily When to call [facility] at Home nurse, review instructions, phone list Incentive Spirometry, demonstration Visit 1- Begin discharge instruction for patient family and/ or caregiver using teach back method- Signs and symptoms of infection Disease characteristics Medicines and side effects Foods and nutrition/ appetite Infection control/ hand washing/ hygiene Visit 2- Continue teaching Discharge instructions- include additional information on smoking cessation , sternal dressing (sternal vac) Visit 3- Continue teaching- Cough and deep breathing, incision monitoring. Choose my plate Visit 4- Continue teaching- Discuss limitations Discuss how they are feeling Discuss progress toward goals Remaining visits- continue teaching and monitoring I have seen patient Sung Woods on 01/09/17. My clinical findings support the need for the requested home health care services because: Deconditioned w/ increased weakness I certify that my clinical findings support that this patient is homebound because: Post-op weakness aMgaly Walsh Jan 09, 2017 12:56
[2017-01-09] MEDS: INSULIN ASPART SUPPLEMENTAL SCALE SQ SCH ×3 (14:00→21:22)
--- NOTE | 2017-01-09 16:07 | EKG ---
Date Performed: 01/09/2017 Time Performed: 04:10:48 PTAGE: 31 years EKG: Sinus arrhythmia ST elevation in multiplie leads, suggests pericarditis Abnormal ECG PREVIOUS TRACING : 10/09/2016 08.45 Compared to the previous tracing, ST elevations in multilpl e leads DOCTOR: Jax Dubois Interpretating Date/Time 01/09/2017 16:05:33
[2017-01-09] MEDS: SENNOSIDES 8.6 MG TAB PO SCH (21:13)
[2017-01-10] VITALS (12 sets, daily range): BP systolic 105–123; BP diastolic 58–77; PULSE 71–108; RESP 12–18; TEMP 98.3–99.3; O2SAT 95–98
[2017-01-10] MEDS: ceFAZolin 2 GM PREMIX 50 ML IV SCH (00:19)
[2017-01-10] MEDS: ONDANSETRON HCL 4 MG/2 ML VIAL IV PUSH PRN ×2 (00:20→05:45)
[2017-01-10] MEDS: oxyCODONE/ACETAMINOPHEN 5 MG/325 MG TAB PO PRN ×6 (00:27→23:20)
[2017-01-10] MEDS: INSULIN ASPART SUPPLEMENTAL SCALE SQ SCH ×2 (02:00→06:00)
[2017-01-10] MEDS: METOCLOPRAMIDE HCL 10 MG/2 ML VIAL IV SCH (04:25)
[2017-01-10 05:09] LABS: AUTOMATED NEUTROPHIL # 10.7 TH/MM3 (1.8-7.7); BASOPHIL % 0.1 % (0.0-2.0); HEMATOCRIT 33.1 % (39.0-51.0); LYMPHOCYTE # 1.2 TH/MM3 (1.0-4.8); MEAN CORPUSCULAR HEMOGLOBIN 31.7 PG (27.0-34.0); MEAN CORPUSCULAR HGB CONC 34.8 % (32.0-36.0); MONO % 12.1 % (0.0-8.0); NEUT % 78.8 % (16.0-70.0); PLATELET COUNT 85 TH/MM3 (150-450); RED BLOOD COUNT 3.64 MIL/MM3 (4.50-5.90); RED CELL DISTRIBUTION WIDTH 13.1 % (11.6-17.2); WHITE BLOOD COUNT 13.6 TH/MM3 (4.0-11.0)
[2017-01-10 05:19] LABS: INTERNATIONAL NORMALIZED RATIO 1.1 RATIO; PROTHROMBIN TIME - PATIENT 12.7 SEC (9.8-11.6)
[2017-01-10 05:26] LABS: HEMO FLAGS AUTO DIFF
[2017-01-10 05:38] LABS: MAGNESIUM 1.9 MG/DL (1.5-2.5); POTASSIUM 4.5 MEQ/L (3.5-5.1)
[2017-01-10] MEDS: PANTOPRAZOLE SOD 40 MG DELAYED RELEASE TAB PO SCH (05:45)
[2017-01-10] MEDS: KETOROLAC TROMETHAMINE 30 MG/ML (IVP) VIAL IV PUSH PRN (05:45)
[2017-01-10 07:11] LABS: PLATELET ESTIMATE SMEAR LOW (NORMAL); PLATELET MORPHOLOGY NORMAL (NORMAL); SCAN/DIFF AUTO DIFF CONFIRMED
[2017-01-10] MEDS: RESP: ALBUTEROL 2.5 MG/IPRATROPIUM 0.5 MG NEB (SCH) NEB ×4 (07:42→20:03)
[2017-01-10] MEDS: DOCUSATE SODIUM 100 MG CAP PO SCH ×2 (09:34→21:00)
[2017-01-10] MEDS: MULTIVITAMINS/MINERALS THERAPEUTIC TAB PO SCH (09:34)
[2017-01-10] MEDS: ASPIRIN 81 MG CHEW TAB PO SCH (09:34)
[2017-01-10] MEDS: MAGNESIUM HYDROXIDE SUSP 30 ML CUP PO SCH (09:34)
[2017-01-10] MEDS: AMIODARONE 200 MG TAB PO SCH ×2 (09:34→20:50)
[2017-01-10] MEDS: POLYETHYLENE GLYCOL 17 GM PKG PO SCH (09:35)
[2017-01-10] MEDS: MAGNESIUM SULFATE 1 GM PREMIX 100 ML IV SCH ×2 (09:36→10:20)
[2017-01-10] MEDS: SODIUM CHLORIDE 0.9% FLUSH 10 ML FLUSH IV FLUSH SCH ×2 (09:36→20:51)
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
[2017-01-10] MEDS: WARFARIN SOD 5 MG TAB PO SCH (18:25)
[2017-01-10] MEDS: METOPROLOL TARTRATE 25 MG TAB PO SCH (20:50)
[2017-01-10] MEDS: SENNOSIDES 8.6 MG TAB PO SCH (20:51)
[2017-01-11] VITALS (24 sets, daily range): BP systolic 106–126; BP diastolic 57–76; PULSE 60–82; RESP 16–18; TEMP 98.6–99; O2SAT 96–98
[2017-01-11] MEDS: oxyCODONE/ACETAMINOPHEN 5 MG/325 MG TAB PO PRN ×5 (02:33→23:42)
[2017-01-11 04:14] LABS: PROTHROMBIN TIME - PATIENT 11.3 SEC (9.8-11.6)
[2017-01-11] MEDS: PANTOPRAZOLE SOD 40 MG DELAYED RELEASE TAB PO SCH (05:41)
--- NOTE | 2017-01-11 06:02 | RADRPT ---
EXAM DATE/TIME: 01/11/2017 04:47 [facility] COMPARISON: CHEST SINGLE AP, January 09, 2017, 3:53. INDICATIONS : Chest tube removal. MEDICAL HISTORY : Aortic stenosis, thoracic aortic aneurysm SURGICAL HISTORY : CABG. ENCOUNTER: Subsequent ACUITY: 4 - 6 days PAIN SCORE: 7/10 LOCATION: Bilateral chest FINDINGS: Worsening consolidation seen left lung base. Mediastinal drain and left chest tube removed. Right internal jugular central venous catheter also ou t. Patient has had median sternotomy. CONCLUSION: 1. All lines and tubes of has been removed. Patient is status post median sternotomy. 2. Mild left base consolidation and probably a small left pleural effusion. Tacos Eastman MD on January 11, 2017 at 5:59 Board Certified Radiologist. This report was verified electronically.
[2017-01-11] MEDS: MAGNESIUM HYDROXIDE SUSP 30 ML CUP PO SCH (08:05)
[2017-01-11] MEDS: AMIODARONE 200 MG TAB PO SCH (08:05)
[2017-01-11] MEDS: POLYETHYLENE GLYCOL 17 GM PKG PO SCH (08:06)
[2017-01-11] MEDS: MULTIVITAMINS/MINERALS THERAPEUTIC TAB PO SCH (08:06)
[2017-01-11] MEDS: ASPIRIN 81 MG CHEW TAB PO SCH (08:06)
[2017-01-11] MEDS: DOCUSATE SODIUM 100 MG CAP PO SCH ×2 (08:06→21:00)
[2017-01-11] MEDS: SODIUM CHLORIDE 0.9% FLUSH 10 ML FLUSH IV FLUSH SCH ×2 (08:07→21:16)
[2017-01-11] MEDS: METOPROLOL TARTRATE 25 MG TAB PO SCH ×2 (08:07→21:16)
[2017-01-11] MEDS: RESP: ALBUTEROL 2.5 MG/IPRATROPIUM 0.5 MG NEB (SCH) NEB (08:15)
[2017-01-11] MEDS: ONDANSETRON HCL 4 MG/2 ML VIAL IV PUSH PRN (08:58)
[2017-01-11] MEDS ORDERED: OXYC1TAB63 PO (11:50)
[2017-01-11] MEDS ORDERED: DOCU1CAP39 PO (11:50)
[2017-01-11] MEDS ORDERED: COUM5TAB PO (11:50)
[2017-01-11] MEDS ORDERED: METO25TA3 PO (11:50)
[2017-01-11] MEDS ORDERED: ASPI81CH25 PO (11:50)
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
[2017-01-11] MEDS: WARFARIN SOD 5 MG TAB PO SCH (15:21)
[2017-01-11] MEDS: SENNOSIDES 8.6 MG TAB PO SCH (21:00)
[2017-01-12] VITALS (16 sets, daily range): BP systolic 121–131; BP diastolic 64–81; PULSE 55–81; RESP 18–20; TEMP 98.5–99.2; O2SAT 97–98
[2017-01-12] MEDS: PANTOPRAZOLE SOD 40 MG DELAYED RELEASE TAB PO SCH (05:45)
[2017-01-12 06:11] LABS: INTERNATIONAL NORMALIZED RATIO 1.2 RATIO; PROTHROMBIN TIME - PATIENT 13.8 SEC (9.8-11.6)
[2017-01-12] MEDS: ONDANSETRON HCL 4 MG/2 ML VIAL IV PUSH PRN (07:47)
[2017-01-12] MEDS: MULTIVITAMINS/MINERALS THERAPEUTIC TAB PO SCH (08:57)
[2017-01-12] MEDS: DOCUSATE SODIUM 100 MG CAP PO SCH (08:57)
[2017-01-12] MEDS: METOPROLOL TARTRATE 25 MG TAB PO SCH (08:57)
[2017-01-12] MEDS: SODIUM CHLORIDE 0.9% FLUSH 10 ML FLUSH IV FLUSH SCH (08:58)
[2017-01-12] MEDS: ASPIRIN 81 MG CHEW TAB PO SCH (08:58)
[2017-01-12] MEDS: POLYETHYLENE GLYCOL 17 GM PKG PO SCH (08:58)
[2017-01-12] MEDS: MAGNESIUM HYDROXIDE SUSP 30 ML CUP PO SCH (08:58)
== END 2017-01-12 14:51 | disposition home or self-care (01) | DRG 220 ==
LOC: HSDI 01-08 05:32 → HCVR 01-08 12:48 → HCIN 01-10 14:15
PROVIDERS: ADMIT Thoracic Surgery (Cardiothoracic Vascular Surgery); ATTEND Thoracic Surgery (Cardiothoracic Vascular Surgery)
PROC: 5A1221Z Performance of Cardiac Output, Continuous (ICD-10-PCS; 2017-01-08)
PROC: B246ZZ4 Ultrasonography of Right and Left Heart, Transesophageal (ICD-10-PCS; 2017-01-08)
PROC: 02RF08Z Replacement of Aortic Valve with Zooplastic Tissue, Open Approach (ICD-10-PCS; principal; 2017-01-08 07:10)
PROC: 02UX0JZ Supplement Thoracic Aorta, Ascending/Arch with Synthetic Substitute, Open Approach (ICD-10-PCS; 2017-01-08 07:10)
DX: I71.2 Thoracic aortic aneurysm, without rupture (principal); I25.810 Atherosclerosis of coronary artery bypass graft(s) without angina pectoris; Z87.891 Personal history of nicotine dependence; I71.9 Aortic aneurysm of unspecified site, without rupture; Z95.1 Presence of aortocoronary bypass graft
CPT/HCPCS: 36415; 71010; 76937; 80048; 81001; 82948; 83735; 85014; 85025; 85027; 85610; 86850; 86900; 86901; 86920; 88304; 88305; 88307; 88311; 93005; 93318; 94002; 94150; 94640; 94664; 94667; 94668; C1768; C9248; C9399; J0131; J0690; J1644; J1815; J1885; J2150; J2250; J2370; J2405; J2710; J2720; J2765; J3010; J3370; J3475; J3480; J7040; J7050; J7120; P9047

== ENCOUNTER 2017-01-06 00:06 | Emergency (ER) | payer OTHER ==
[~2017-01-06] VITALS: Ht 182.9 cm; Wt 85.0 kg
[~2017-01-06 00:06] MED LIST changes: +FLUT50SP EACH NARE; +OMEP20TA PO
[2017-01-06 00:08] VITALS: BP 122/69; PULSE 91; RESP 16; TEMP 97.7; O2SAT 96
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
== END 2017-01-06 01:12 | disposition home or self-care (01) ==
LOC: NEPC 00:06
DX: S00.03XA Contusion of scalp, initial encounter (principal); Y29.XXXA Contact with blunt object, undetermined intent, initial encounter; Y93.9 Activity, unspecified; Y92.9 Unspecified place or not applicable; Y99.0 Civilian activity done for income or pay; Z72.0 Tobacco use
CPT/HCPCS: 99283

== ENCOUNTER → 2017-01-07 | Outpatient (CLI) | payer OTHER ==
[~2017-01-07] MED LIST changes: +ASPI81CH25 PO; +COUM5TAB PO; +DOCU1CAP39 PO; +FLUT1SPR5 EACH NARE; -FLUT50SP EACH NARE; +METO25TA3 PO; -OMEP20TA PO; +OXYC1TAB63 PO; -Z.0.NO CURRENT MEDS
[2017-01-07 13:07] LABS: AUTOMATED NEUTROPHIL # 2.5 TH/MM3 (1.8-7.7); BASOPHIL % 0.2 % (0.0-2.0); EOSINOPHIL # 0.1 TH/MM3 (0-0.4); HEMATOCRIT 40.9 % (39.0-51.0); HEMO FLAGS DIFF FINAL; LYMPHOCYTE # 1.4 TH/MM3 (1.0-4.8); MEAN CELL VOLUME 91.4 FL (80.0-100.0); MEAN CORPUSCULAR HEMOGLOBIN 31.6 PG (27.0-34.0); MEAN CORPUSCULAR HGB CONC 34.6 % (32.0-36.0); MONO % 9.3 % (0.0-8.0); NEUT % 55.5 % (16.0-70.0); PLATELET COUNT 156 TH/MM3 (150-450); RED BLOOD COUNT 4.47 MIL/MM3 (4.50-5.90); RED CELL DISTRIBUTION WIDTH 12.8 % (11.6-17.2); WHITE BLOOD COUNT 4.4 TH/MM3 (4.0-11.0)
[2017-01-07 13:08] LABS: BLOOD, URINE NEG (NEG); GLUCOSE,URINE NEG (NEG); KETONE, URINE NEG (NEG); NITRITE,URINE NEG (NEG); PH, URINE 7.5 (5.0-8.5); URINE COLOR YELLOW (YELLW/STRAW)
[2017-01-07 13:12] LABS: COMMENT (UR) CULT NOT INDICATED; CULTURE IF INDICATED CULT NOT INDICATED
[2017-01-07 13:15] LABS: PROTHROMBIN TIME - PATIENT 11.4 SEC (9.8-11.6)
[2017-01-07 13:37] LABS: BICARBONATE 28.3 MEQ/L (21.0-32.0); POTASSIUM 4.4 MEQ/L (3.5-5.1)
== END ==
LOC: CPRE 12:13
PROVIDERS: ATTEND Thoracic Surgery (Cardiothoracic Vascular Surgery)
DX: Z01.812 Encounter for preprocedural laboratory examination (principal); I71.2 Thoracic aortic aneurysm, without rupture; Q23.1 Congenital insufficiency of aortic valve; I71.9 Aortic aneurysm of unspecified site, without rupture
CPT/HCPCS: 36415; 80048; 81001; 85025; 85610; 86850; 86900; 86901

== ENCOUNTER → 2017-04-10 | Outpatient (CLI) | payer OTHER ==
[2017-04-10 15:47] LABS: APTT (PATIENT) 27.4 SEC (24.3-30.1)
== END ==
LOC: CPRE 14:49
PROVIDERS: ATTEND Thoracic Surgery (Cardiothoracic Vascular Surgery)
DX: Z01.812 Encounter for preprocedural laboratory examination (principal); Z95.2 Presence of prosthetic heart valve
CPT/HCPCS: 36415; 85610; 85730; 86850; 86900; 86901

== ENCOUNTER → 2017-04-11 | Day surgery (SDC) | payer OTHER ==
[~2017-04-11] VITALS: Ht 182.9 cm; Wt 79.0 kg
[~2017-04-11] MED LIST changes: +BUPIVACAINE HCL PF 0.5% 30 ML VIAL ONE; +CHLORHEXIDINE GLUCONATE 2 % 1 PACK (2 CLOTHS) TOPICAL PRN; -COUM5TAB PO; +DEXAMETHASONE SOD PHOS 4 MG/ML VIAL IV ONE; +DO NOT ADM ANY ANTICOAGULANT DRUGS PRN; -DOCU1CAP39 PO; +INSULIN HUMAN REGULAR 1,000 UNITS/10 ML VIAL SQ PRN; +LACTATED RINGER'S 1000 ML IV PRN; +METOPROLOL TARTRATE 25 MG TAB PO PRN; +MIDAZOLAM HCL 2 MG/2 ML VIAL IV ONE; +ONDANSETRON HCL 4 MG/2 ML VIAL IV PUSH ONE; -OXYC1TAB63 PO; +POVIDONE IODINE 5% (ANTISEPSIS KIT) 4 APPLICATIONS EACH NARE PRN; +PROPOFOL 200 MG/20 ML AMP IV ONE; +SODIUM CHLORID 0.9% 500 ML IV PRN; +SODIUM CHLORIDE 0.9% 20 ML VIAL ONE; +ceFAZolin 2 GM PREMIX 0 ML ONE
[2017-04-11 06:57] LABS: APTT (PATIENT) 28.6 SEC (24.3-30.1); PROTHROMBIN TIME - PATIENT 11.4 SEC (9.8-11.6)
[2017-04-11 09:50] VITALS: BP 124/73; PULSE 51; RESP 20; TEMP 96.5; O2SAT 100
--- NOTE | 2017-04-11 11:17 | MP ---
cc: PAULETTE CLARK SOHIT K. MD DATE OF SURGERY: 04/11/2017 PREOPERATIVE DIAGNOSES 1. Protruding lower most sternal wire. 2. Status post mediastinotomy. 3. Status post AVR and ascending aortic aneurysm replacement. POSTOPERATIVE DIAGNOSES 1. Protruding lower most sternal wire. 2. Status post mediastinotomy. 3. Status post AVR and ascending aortic aneurysm replacement. SURGICAL PROCEDURE Removal of lower most protruding sternal wire. SURGEON Dr. Stormy Morton. AUTO MOTOR MECHANIC ALICE Soria ANESTHESIA Local Marcaine with IV sedation. COST ENGINEER Pari Leyva CRNA and Prasanna Yuan MD COUNTS Correct. DRAINS None. COMPLICATIONS None. INDICATION Mr. Woods is a pleasant 31-year-old gentleman status post AVR, and ascending aortic aneurysm replacement with a median sternotomy approximately 3 months ago who now presents with a symptomatic, protruding lower most sternal wire. The patient is being taken back to the operating room for surgical removal of the sternal wire. PROCEDURE The patient was brought to the operating room and placed supine on the OR table. Following induction of IV sedation and placement of appropriate monitoring devices the chest was prepped and draped in a standard sterile fashion. The skin overlying the well-healed mediastinotomy incision and the palpable subcutaneous protruded sternal wire was anesthetized with Marcaine 0.5% with epinephrine. A approximately 2 cm incision was then made overlying the wire and carried down to the level of the sternal wire. The wire was dissected free laterally, divided and removed en bloc. Strict hemostasis was assured. The wound was copiously irrigated with sterile saline and closed in three layers. The patient tolerated the procedure well and was transferred to the recovery room in stable condition. Stormy KENNEDY/ISI /7:54 AM /10:55 AM MTDEddie
== END | disposition home or self-care (01) ==
LOC: HSDC 05:33
PROVIDERS: ATTEND Thoracic Surgery (Cardiothoracic Vascular Surgery)
DX: T81.89XA Other complications of procedures, not elsewhere classified, initial encounter (principal); I71.9 Aortic aneurysm of unspecified site, without rupture; I71.2 Thoracic aortic aneurysm, without rupture; Q23.1 Congenital insufficiency of aortic valve; Z95.2 Presence of prosthetic heart valve
CPT/HCPCS: 00400; 20680; 85610; 85730; J1100; J2250; J2405; J3010; J7120; J0690